=== PATIENT | male | born 2000 | race Caucasian/White ===

== ENCOUNTER 2019-11-13 21:34 | Inpatient (IN) | payer SELFPAY ==
[~2019-11-13] VITALS: Ht 165.1 cm; Wt 52.2 kg
[2019-11-13] MEDS ORDERED: ACETAMINOPHEN 325 MG TAB ONE (23:14)
[2019-11-13] MEDS ORDERED: SODIUM CHLORIDE 0.9% 1000ML 1,000 ML IV ONE (23:15)
[2019-11-13] MEDS ORDERED: PIPER-TAZ 3.375 GM 50 ML IV ONE (23:15)
[2019-11-13] MEDS ORDERED: MORPHINE SULFATE 2 MG/ML SYR 1ML IV STA (23:15)
[2019-11-13] MEDS ORDERED: ACETAMINOPHEN 325 MG TAB PO ONE (23:15)
[2019-11-13] MEDS ORDERED: ONDANSETRON HCL INJ 2MG/ML 2ML 2 MG/ML VIAL IV STA (23:15)
[2019-11-13] MEDS ORDERED: SODIUM CHLORIDE 0.9% 1000ML 1,000 ML ONE (23:17)
[2019-11-13 23:41] LABS: BASOPHILS % 0.2 % (0.0-1.0); HEMATOCRIT 47.9 % (38.2-49.6); HEMOGLOBIN 15.5 g/dL (14.0-18.0); LYMPHOCYTES # (AUTO) 0.6 (1.0-3.2); LYMPHOCYTES % 4.1 % (18.0-39.1); MEAN CORPUSCULAR HEMOGLOBIN 26.6 pg (28-32); MEAN CORPUSCULAR HGB CONC 32.4 g/dL (31-35); MEAN CORPUSCULAR VOLUME 82.2 fL (81-99); MONOCYTES # (AUTO) 1.1 (0.2-0.8); MONOCYTES % 7.5 % (4.4-11.3); NEUTROPHILS # (AUTO) 12.6 (2.1-6.9); NEUTROPHILS % 87.8 % (38.7-80.0); PLATELET COUNT 365 x10e3/uL (140-360); RED BLOOD COUNT 5.83 x10e6/uL (4.3-5.7); RED CELL DISTRIBUTION WIDTH 13.5 % (11.7-14.4)
[2019-11-13 23:47] LABS: ALANINE AMINOTRANSFERASE 10 IU/L (0-55); ALBUMIN 3.9 g/dL (3.5-5.0); ALBUMIN/GLOBULIN RATIO 1.1 (0.8-2.0); ALKALINE PHOSPHATASE 91 IU/L (40-150); ANION GAP 17.3 mmol/L (8-16); BLOOD UREA NITROGEN 14 mg/dL (7-26); BUN/CREATININE RATIO 14 (6-25); CALCIUM 9.5 mg/dL (8.4-10.2); CARBON DIOXIDE 24 mmol/L (22-29); CHLORIDE 99 mmol/L (98-107); CREATININE, SERUM 1.01 mg/dL (0.72-1.25); EST GLOMERULAR FILTRATION RATE > 60 ML/MIN (60-); GLUCOSE 108 mg/dL (74-118); POTASSIUM 4.3 mmol/L (3.5-5.1); SODIUM 136 mmol/L (136-145)
[2019-11-14] MEDS ORDERED: SODIUM CHLORIDE 0.9% 1000ML 1,000 ML IV ONE
[2019-11-14] MEDS ORDERED: SODIUM CHLORIDE 0.9% 50ML 50 ML ONE (00:43)
[2019-11-14] MEDS ORDERED: IOPAMIDOL 370 MG/ML 200 ML INFUS..BTL INJ ONE (00:43)
--- NOTE | 2019-11-14 01:32 | Emergency Department Note ---
History of Present Illnes History of Present Illness Chief Complaint: Abdominal Complaints History of Present Illness This is a 19 year old male WITH RIGHT ABD PAIN, N/V/D AND BURNING WITH URINATION TIMES ONE DAY . Historian: Patient Arrival Mode: Car Location: RIGHT ABD Quality: PAIN Radiation: Reports non-radiation Severity: moderate Onset quality: gradual Duration (how long): day(s) (1) Timing of current episode: constant Progression: worsening Context: Denies recent illness, Denies recent surgery, Denies trauma/injury Relieving factors: none Exacerbating factors: none Associated symptoms: Reports nausea/vomiting, Reports other (DIARRHEA, BURING WITH URINATION) Past Medical/Family History Physician Review I have reviewed the patient's past medical and family history. Any updates have been documented here. Past Medical History Recent Fever: No Clinical Suspicion of Infectio: No New/Unexplained Change in Ment: No Past Medical History: None Other Surgery: NASAL SX Social History Smoking Cessation: Never Smoker Alcohol Use: None Any Illegal Drug Use: No Physically hurt or threatened: No Other Any Pre-Existing Lines (PICC,: No Review of Systems Review of Systems Constitutional: Reports no symptoms EENTM: Reports no symptoms Cardiovascular: Reports no symptoms Respiratory: Reports no symptoms Gastrointestinal: Reports as per HPI Genitourinary: Reports as per HPI Musculoskeletal: Reports no symptoms Integumentary: Reports no symptoms Neurological: Reports no symptoms Psychological: Reports no symptoms Endocrine: Reports no symptoms Hematological/Lymphatic: Reports no symptoms Physical Exam Related Data Allergies: Coded Allergies: No Known Drug Allergies (Verified Allergy, Unknown, 11/14/19) Triage Vital Signs Vital Signs Date Time Temp Pulse Resp B/P (MAP) Pulse Ox O2 Delivery O2 Flow Rate FiO2 11/13/19 22:29 101.0 122 16 148/93 99 Room Air Vital signs reviewed: Yes Physical Exam CONSTITUTIONAL Constitutional: Present well-developed, Present well-nourished, Present distressed (MILD) HENT HENT: Present normocephalic, Present atraumatic, Present oropharynx clear/moist, Present nose normal HENT L/R: Present left ext ear normal, Present right ext ear normal EYES Eyes: Reports PERRL, Reports conjunctivae normal NECK Neck: Present ROM normal PULMONARY Pulmonary: Present effort normal, Present breath sounds normal CARDIOVASCULAR Cardiovascular: Present regular rhythm, Present heart sounds normal, Present capillary refill normal, Present tachycardia (110) GASTROINTESTINAL Abdominal: Present soft, Present tender (TO RUQ AND RLQ, RLQ WORSE), Present guarding (RLQ), Present rebound (RLQ), Present other (BOWEL SOUNDS DECREASED, ) GENITOURINARY Genitourinary: Present exam deferred SKIN Skin: Present warm, Present dry MUSCULOSKELETAL Musculoskeletal: Present ROM normal NEUROLOGICAL Neurological: Present alert, Present oriented x 3, Present no gross motor or sensory deficits PSYCHOLOGICAL Psychological: Present mood/affect normal, Present judgement normal Results Laboratory Result Diagram: 11/13/19230911/13/192309 Laboratory Laboratory Tests Test 11/14/19 00:56 11/13/19 23:18 11/13/19 23:10 Lactic Acid Level 3.4 mmol/L (0.5-2.0) White Blood Count 14.30 x10e3/uL (4.8-10.8) Red Blood Count 5.83 x10e6/uL (4.3-5.7) Hemoglobin 15.5 g/dL (14.0-18.0) Hematocrit 47.9 % (38.2-49.6) Mean Corpuscular Volume 82.2 fL (81-99) Mean Corpuscular Hemoglobin 26.6 pg (28-32) Mean Corpuscular Hemoglobin Concent 32.4 g/dL (31-35) Red Cell Distribution Width 13.5 % (11.7-14.4) Platelet Count 365 x10e3/uL (140-360) Neutrophils (%) (Auto) 87.8 % (38.7-80.0) Lymphocytes (%) (Auto) 4.1 % (18.0-39.1) Monocytes (%) (Auto) 7.5 % (4.4-11.3) Eosinophils (%) (Auto) 0.0 % (0.0-6.0) Basophils (%) (Auto) 0.2 % (0.0-1.0) Neutrophils # (Auto) 12.6 (2.1-6.9) Lymphocytes # (Auto) 0.6 (1.0-3.2) Monocytes # (Auto) 1.1 (0.2-0.8) Eosinophils # (Auto) 0.0 (0.0-0.4) Basophils # (Auto) 0.0 (0.0-0.1) Absolute Immature Granulocyte (auto 0.06 x10e3/uL (0-0.1) Sodium Level 136 mmol/L (136-145) Potassium Level 4.3 mmol/L (3.5-5.1) Chloride Level 99 mmol/L (98-107) Carbon Dioxide Level 24 mmol/L (22-29) Anion Gap 17.3 mmol/L (8-16) Blood Urea Nitrogen 14 mg/dL (7-26) Creatinine 1.01 mg/dL (0.72-1.25) Estimat Glomerular Filtration Rate > 60 ML/MIN (60-) BUN/Creatinine Ratio 14 (6-25) Glucose Level 108 mg/dL (74-118) Calcium Level 9.5 mg/dL (8.4-10.2) Total Bilirubin 1.8 mg/dL (0.2-1.2) Aspartate Amino Transf (AST/SGOT) 10 IU/L (5-34) Alanine Aminotransferase (ALT/SGPT) 10 IU/L (0-55) Alkaline Phosphatase 91 IU/L (40-150) Total Protein 7.6 g/dL (6.5-8.1) Albumin 3.9 g/dL (3.5-5.0) Globulin 3.7 g/dL (2.3-3.5) Albumin/Globulin Ratio 1.1 (0.8-2.0) Lab results reviewed: Yes Imaging Imaging results reviewed: Yes Impressions DR BERMEO (RADIOLOGIST) CALLED PT HAS MULTIPLE ABNORMALITIES BOWEL PERFORATION MULTIPLE STRICTURES INFLAMED APPENDIX INFLAMED ILEUM APPEARS TO HAVE SEVER CHRON'S BOWEL OBSTRUCTION Assessment & Plan Medical Decision Making MDM PT WITH RIGHT ABD PAIN WITH TENDERNESS TO ENTIRE RIGHT ABDOMEN BUT WORST AT RLQ, PT ALSO WITH GUARDING AND MILD REBOUND IN RLQ CBC,CMP, CT ABD/PELVIS, UA, LACTIC ACID, BLOOD CULTURES, ORDERED TO EVAL FOR SEPSIS, APPENDICITIS, UTI, PYELONEPHRITIS, KIDNEY STONE, GALLSTONES, ELEVATED LFT'S. MORPHINE 4 MG IV ORDERED ZOFRAN 4 MG IV ORDERED 2 LITERS NS IV BOLUS ORDERED ZOSYSN 3.375 GRAMS IV ORDERED SEPSIS START TIME [address] BONILLA AND DR COOK PT TO GO TO OR AT 7 AM Assessment & Plan Final Impression: (1) Severe sepsis (2) Perforated bowel (3) Bowel obstruction (4) Acute Crohn's disease (5) UTI (urinary tract infection) Depart Disposition: ADMITTED Last Vital Signs Date Time Temp Pulse Resp B/P (MAP) Pulse Ox O2 Delivery O2 Flow Rate FiO2 11/14/19 00:19 99.4 99 24 128/75 100 Room Air Medications in the ED Acetaminophen 975 mg STK-MED ONCE .ROUTE ; Start 11/13/19 at 23:14; Stop 11/13/19 at 23:09; Status DC Sodium Chloride 1,000 ml @ ud STK-MED ONCE .ROUTE ; Start 11/13/19 at 23:17; Stop 11/13/19 at 23:12; Status DC Piperacillin Sod/ Tazobactam Sod 50 ml @ 50 mls/hr NOW ONCE IV Last admini stered on 11/14/19at 00:05; Admin Dose 50 MLS/HR; Start 11/13/19 at 23:15; Stop 11/14/19 at 00:14 Acetaminophen 975 mg ONCE ONCE PO Last administered on 11/13/19at 23:15; Admin Dose 975 MG; Start 11/13/19 at 23:15; Stop 11/13/19 at 23:16 Sodium Chloride 1,000 ml @ 999 mls/hr Q1H1M ONCE IV Last administered on 11/14/19at 00:17; Admin Dose 999 MLS/HR; Start 11/13/19 at 23:15; Stop 11/14/19 at 00:15 Morphine Sulfate 2 mg NOW STAT IV Last administered on 11/14/19at 00:30; Admin Dose 2 MG; Start 11/13/19 at 23:15; Stop 11/13/19 at 23:16 Ondansetron HCl 4 mg NOW STAT IV Last administered on 11/14/19at 00:30; Admin Dose 4 MG; Start 11/13/19 at 23:15; Stop 11/13/19 at 23:16 Sodium Chloride 1,000 ml @ 999 mls/hr Q1H1M ONCE IV Last administered on 11/13/19at 23:15; Admin Dose 999 MLS/HR; Start 11/14/19 at 00:00; Stop 11/14/19 at 01:00 Sodium Chloride 50 ml @ ud STK-MED ONCE .ROUTE ; Start 11/14/19 at 00:43; Stop 11/14/19 at 00:37; Status DC Iopamidol 74,000 mg STK-MED ONCE INJ ; Start 11/14/19 at 00:43; Stop 11/14/19 at 00:37; Status DC PO CASTILLO MD Nov 14, 2019 01:32
[2019-11-14 01:37] LABS: CLARITY,URINE CLEAR (CLEAR); COLOR,URINE ORANGE (YELLOW)
[2019-11-14 01:38] LABS: BACTERIA,URINE MANY /HPF; BILIRUBIN,URINE SMALL (NEGATIVE); KETONES,URINE NEGATIVE (NEGATIVE); LEUKOCYTE ESTERASE ,URINE NEGATIVE (NEGATIVE); NITRITE,URINE POSITIVE (NEGATIVE); PROTEIN,URINE DIPSTICK 1+ (NEGATIVE); URINE UROBILINOGEN 0.2 mg/dL (0.2 - 1)
[2019-11-14 01:39] LABS: EPITHELIAL CELLS,URINE MODERATE /LPF; MUCUS,URINE MODERATE (RARE)
[2019-11-14] MEDS ORDERED: ACETAMINOPHEN 1000 MG/100 ML IV PRN (02:15)
[2019-11-14] MEDS ORDERED: BENZOCAINE/TETRACAINE/BUTAMBEN AERO SPRAY 56 GM CAN TOP ONE (02:15)
--- NOTE | 2019-11-14 02:15 | Diagnostic Imaging Report ---
EXAM: CT Abdomen and Pelvis WITH contrast INDICATION: ^RLQ PAIN, FEVER ^Y COMPARISON: None. TECHNIQUE: Abdomen and pelvis were scanned utilizing a multidetector helical scanner from the lung base to the pubic symphysis after administration of IV contrast. Coronal and sagittal reformations were obtained. Routine protocol was performed. Scan was performed when during portal venous phase. IV CONTRAST: 100 mL of Isovue 370 ORAL CONTRAST: None COMPLICATIONS: None RADIATION DOSE: Total DLP: 171.7 mGy*cm Estimated effective dose: (DLP x 0.015 x size factor) mSv CTDIvol has been reviewed. It is below the limits set by the Radiation Protocol Committee (RPC). Dose modulation, iterative reconstruction, and/or weight based adjustment of the mA/kV was utilized to reduce the radiation dose to as low as reasonably achievable. FINDINGS: LINES and TUBES: None. LOWER THORAX: Unremarkable HEPATOBILIARY: No focal hepatic lesions. No biliary ductal dilation. GALLBLADDER: No radio-opaque stones or sludge. No wall thickening. SPLEEN: No splenomegaly. PANCREAS: No focal masses or ductal dilatation. ADRENALS: No adrenal nodules KIDNEYS/URETERS: Kidneys enhance symmetrically. No hydronephrosis. No cystic or solid mass lesions. No stones. GI TRACT: Scattered foci of free intraperitoneal air. Small volume complex ascites. The terminal ileum is markedly thickened and hyperenhancing, concerning for high grade stricture. Multiple areas of hyperenhancing soft tissue tissue narrowing of small bowel loops that are suspected to represent additional inflammatory strictures as follows: * Left paramedian infraumbilical abdomen series #2 image 53. There is an 7 mm adjacent rim-enhancing hypodense lesion concerning for abscess. * Mid abdomen at the level of the KARON. series 2 image #41. * Left hemiabdomen at the level of the umbilicus. Series 2Image 48. There is dilatation of the distal ileum measuring up to 4.8 cm with thickened hyperenhancing glover that measure up to 5 mm. The appendix is in the right lower quadrant best seen on series #2 image 66. The appendix is dilated measuring up to 8 mm oval mildly dilated loops of bowel in the right hemiabdomen. Engorgement of the vasa recta. PELVIC ORGANS/BLADDER: Unremarkable. LYMPH NODES: No lymphadenopathy. VESSELS: Unremarkable. PERITONEUM / RETROPERITONEUM: There are multiple foci of free air. Small volume free fluid. BONES: Unremarkable. SOFT TISSUES: Unremarkable. IMPRESSION: * Findings concerning for viscus perforation with complex intraperitoneal fluid and air. * Uncertain source of perforation. Markedly dilated distal ileum (4.8 cm) with marked wall thickening (5 mm), and fecalization of contents. The distal ileum is located between upstream and downstream high-grade strictures and may be the source of perforation. * Thickened hyperenhancing terminal ileum and multiple thickened hyperenhancing segments of small bowel concerning for inflammatory strictures. Given skip lesions and engorgement of the vasa recta, inflammatory bowel disease - Crohns is suspected. * The appendix is dilated up to 8 mm in hyperenhancing, although this could be reactive to inflammatory changes, acute appendicitis is not excluded. * Possible subcentimeter intraperitoneal abscess as above. . Signed by: Scott Santos MD on 11/14/2019 2:11 AM
--- OUTSIDE RECORDS SUMMARY | 2019-11-14 02:27 | XMS REPORT | Continuity of Care Document ---
Author Author [facility] [place], [place] Organization [facility] [place], [place] Address [address] [place] [phone] Phone Unavailable Care Team Providers Care Genetics Nurse Name Role Phone Ciarra CASTILLO Attphys Unavailable Problems This patient has no known problems. Allergies, Adverse Reactions, Alerts This patient has no known allergies or adverse reactions. Medications This patient has no known medications. Procedures This patient has no known procedures. Results Test Description Test Time Test Comments Results Result Comments Source CT ABDOMEN/PELVIS W 2019-11-14 01:34:[address] [address] Patient Name: BRITNEY CRISOSTOMO MR #: [id number] : 2000 Age/Sex: 19/M Req #: [id number] Adm Physician: Ordered by: PO CASTILLO MD Report #: [id number] Location: ER Room/Bed: Procedure: [id number] CT/CT ABDOMEN/PELVIS W Exam Date: Exam Time: REPORT STATUS: Signed EXAM: CT Abdomen and Pelvis WITH contrast INDICATION: RLQ PAIN, FEVER Y COMPARISON: None. TECHNIQUE: Abdomen and pelvis were scanned utilizing a multidetector helical scanner from the lung base to the pubic symphysis after administration of IV contrast. Coronal and sagittal reformations were obtained. Routine protocol was performed. Scan was performed when during portal venous phase. IV CONTRAST: 100 mL of Isovue 370 ORAL CONTRAST: None COMPLICATIONS: None RADIATION DOSE: Total DLP: 171.7 mGy*cm Estimated effective dose: (DLP x 0.015 x size factor) mSv CTDIvol has been reviewed. It is below the limits set by the Radiation Protocol Committee (RPC). Dose modulation, iterative reconstruction, and/or weight based adjustment of the mA/kV was utilized to reduce the radiation dose to as low as reasonably achievable. FINDINGS: LINES and TUBES: None. LOWER THORAX: Unremarkable HEPATOBILIARY: No focal hepatic lesions. No biliary ductal dilation. GALLBLADDER: No radio-opaque stones or sludge. No wall thickening. SPLEEN: No splenomegaly. PANCREAS: No focal masses or ductal dilatation. ADRENALS: No adrenal nodules KIDNE YS/URETERS: Kidneys enhance symmetrically. No hydronephrosis. No cystic or solid mass lesions. No stones. GI TRACT: Scattered foci of free intraperitoneal air. Small volume complex ascites. The terminal ileum is markedly thickened and hyperenhancing, concerning for high grade stricture. Multiple areas of hyperenhancing soft tissue tissue narrowing of small bowel loops that are suspected to represent additional inflammatory strictures as follows: * Left paramedian infraumbilical abdomen series #2 image 53. There is an 7 mm adjacent rim-enhancing hypodense lesion concerning for abscess. * Mid abdomen at the level of the KARON. series 2 image #41. * Left hemiabdomen at the level of the umbilicus. Series 2Image 48. There is dilatation of the distal ileum measuring up to 4.8 cm with thickened hyperenhancing glover that measure up to 5 mm. The appendix is in the right lower quadrant best seen on series #2 image 66. The appendix is dilated measur ing up to 8 mm oval mildly dilated loops of bowel in the right hemiabdomen. Engorgement of the vasa recta. PELVIC ORGANS/BLADDER: Unremarkable. LYMPH NODES: No lymphadenopathy. VESSELS: Unremarkable. PERITONEUM / RETROPERITONEUM: There are multiple foci of free air. Small volume free fluid. BONES: Unremarkable. SOFT TISSUES: Unremarkable. IMPRESSION: * Findings concerning for viscus perforation with complex intraperitoneal fluid and air. * Uncertain source of perforation. Markedly dilated distal ileum (4.8 cm) with marked wall thickening (5 mm), and fecalization of contents. The distal ileum is located between upstream and downstream high-grade strictures and may be the source of perforation. * Thickened hyperenhancing terminal ileum and multiple thickened hyperenhancing segments of small bowel concerning for inflammatory strictures. Given skip lesions and engorgement of the vasa recta, inflammatory bowel disease - Crohns is suspected. * The appendix is dilated up to 8 mm in hyperenhancing, although this could be reactive to inflammatory changes, acute appendicitis is not excluded. * Possible subcentimeter intraperitoneal abscess as above. . Signed by: Chad Bermeo MD on 11/14/2019 2:11 AM Dictated By: CHAD BERMEO MD 0 Transcrib ed By: YESY on 11/14/19210 COPY TO: PO CASTILLO MD
[2019-11-14 04:00] VITALS: BP 126/81
--- NOTE | 2019-11-14 04:00 | NUR ---
Patient arrived to the floor from ED as a new admit with diagnoses of Acute Chron's Disease, Perforated Bowel, Bowel obstruction, Severe sepsis, and UTI. Pt alert and oriented x3. Ambulatory with standby assist prn. NG tube to right nare and to LIWS. Pt on IVF (NS at 125ml/hr). Pt on scheduled IV antibiotics. Pt on scheduled surgery (Exploratory Laparotomy) at 0700 (11/14/19). Pt has intermittent abd pain on RUQ and RLQ. Call frost within reach. Will monitor closely.
[2019-11-14] MEDS: SODIUM CHLORIDE 0.9% 1000ML 1,000 ML IV SCH ×4 (04:20→20:12)
--- NOTE | 2019-11-14 05:00 | NUR ---
Pt NPO and has signed consent for Exploratory Laparotomy. Pt has brownish to greenish mucousy fluid output to canister noted via NGT.
--- NOTE | 2019-11-14 05:40 | NUR ---
Patient had a bed hibiclens bath in preparation for today's surgery.
[2019-11-14 06:41] LABS: BASOPHILS % 0.3 % (0.0-1.0); EOSINOPHILS % 0.1 % (0.0-6.0); HEMATOCRIT 41.3 % (38.2-49.6); HEMOGLOBIN 13.3 g/dL (14.0-18.0); LYMPHOCYTES # (AUTO) 0.4 (1.0-3.2); LYMPHOCYTES % 4.1 % (18.0-39.1); MEAN CORPUSCULAR HEMOGLOBIN 26.9 pg (28-32); MEAN CORPUSCULAR HGB CONC 32.2 g/dL (31-35); MEAN CORPUSCULAR VOLUME 83.6 fL (81-99); MONOCYTES # (AUTO) 0.4 (0.2-0.8); MONOCYTES % 3.6 % (4.4-11.3); NEUTROPHILS % 91.5 % (38.7-80.0); PLATELET COUNT 297 x10e3/uL (140-360); RED BLOOD COUNT 4.94 x10e6/uL (4.3-5.7); RED CELL DISTRIBUTION WIDTH 13.5 % (11.7-14.4)
[2019-11-14 06:54] LABS: ALANINE AMINOTRANSFERASE 8 IU/L (0-55); ALBUMIN 3.1 g/dL (3.5-5.0); ALKALINE PHOSPHATASE 73 IU/L (40-150); ANION GAP 12.5 mmol/L (8-16); BLOOD UREA NITROGEN 12 mg/dL (7-26); BUN/CREATININE RATIO 14 (6-25); CALCIUM 8.6 mg/dL (8.4-10.2); CARBON DIOXIDE 26 mmol/L (22-29); CHLORIDE 104 mmol/L (98-107); CREATININE, SERUM 0.88 mg/dL (0.72-1.25); EST GLOMERULAR FILTRATION RATE > 60 ML/MIN (60-); GLUCOSE 98 mg/dL (74-118); POTASSIUM 4.5 mmol/L (3.5-5.1); SODIUM 138 mmol/L (136-145)
--- NOTE | 2019-11-14 07:00 | NUR ---
RECEIVED PATIENT RESTING IN BED NO S/S OF DISTRESS. NGT TO LIWS. BED LOW, WHEELS LOCKED, SIDE RAILS X2. CALL LIGHT IN REACH WILL CONTINUE TO MONITOR PATIENT. PATIENT NPO AT THIS TIME FOR PROCEDURE THIS MORNING.
--- NOTE | 2019-11-14 07:17 | NUR ---
PATIENT TAKEN TO OR VIA BED BY OR TEAM IN STABLE CONDITION.
--- NOTE | 2019-11-14 08:32 | Consultation ---
DATE OF CONSULTATION: 11/14/2019 CHIEF COMPLAINT: Abdominal pain. HISTORY OF PRESENT ILLNESS: A 19-year-old male with 1-day history of pain, which was diffuse and associated with nausea. No vomiting or diarrhea. The patient has had mildly decrease of pain in the past. PAST MEDICAL HISTORY: Negative for chronic illness. PAST SURGICAL HISTORY: Positive for nasal surgery. ALLERGIES: NO DRUGS ALLERGY. SOCIAL HABITS: He does not smoke or drink. REVIEW OF SYSTEMS: No chest pain, shortness of breath, cough, or fevers. PHYSICAL EXAMINATION: VITAL SIGNS: The patient's vital signs are stable. T-max is 101. GENERAL: The patient is awake, alert, in moderate discomfort. HEENT: Sclerae nonicteric. NECK: Supple. LUNGS: Clear. HEART: Regular rate and rhythm. ABDOMEN: Mildly distended with diffuse guarding, tenderness, and mild rebound in the right lower quadrant. EXTREMITIES: No cyanosis or edema. LABORATORY DATA: White cell count is 14, hemoglobin of 13, and platelet count 297. Creatinine is 1.0. CT scan show multiple dilated loops of bowel with thickened ileum, concerning for Crohn's disease. Mildly dilated appendix. ASSESSMENT: Perforated viscus with pneumoperitoneum, possible perforated Crohn's disease. PLAN: Exploratory laparotomy, possible bowel resection. Attendant risks were discussed. Jose Whitehead MD DNL/MODL /[id number]
[2019-11-14] MEDS ORDERED: NEOSTIGMINE 1 MG/ML 10ML VIAL ONE ×2 (09:21→14:44)
--- NOTE | 2019-11-14 09:30 | NUR ---
H&P cc: abdominal pain HPI: 19yoM, PCP , developed abdominal pain about 2 days ago, with N/V/D. Found to have perforated viscus, taken to surgery this am, underwent right hemicolectomy. PMH: none PShx: nasal polypectomy Allergies; see emr Fh/SH; single; no cigs meds; see MAR ROS: no f/c/s/ORTEGA/vision changes/cp/sob/confusion/focal limb weakness v/s revd PE tired appearing; NGT IN PLACE anicteric ns1s2 mod bs soft ND; DRESSING IN MIDLINE OF ABDOMEN; APPROPRIATE TENDERNESS no e/t; SCD skin dry flat affect a&ox3; mejía labs/meds revd A/P: Perforated viscus- IV abx; NPO; Sx consult; s/p right hemicolectomy Crohn's ileitis- with perforation; s/p surgical resection Sepsis- IV abx; IVF UTI- IV abx Prop: scd; dipso: Desmond Chavez MD, PhD.
--- NOTE | 2019-11-14 09:52 | Operative Report ---
DATE OF PROCEDURE: 11/14/2019 SURGEON: Jose Whitehead MD PREOPERATIVE DIAGNOSIS: Perforated viscus. POSTOPERATIVE DIAGNOSIS: Perforated Crohn ileitis. OPERATIVE PROCEDURE: Right colectomy. ANESTHESIA: General endotracheal; Dr. Grijalva. INDICATION FOR SURGERY: This patient is a 19-year-old male with abdominal pain diffusely for several days with CT scan showing evidence of free air and ileitis. The patient consented for exploratory laparotomy and possible bowel resection. PROCEDURE FINDING: Ileitis with perforation in the terminal ileum with diffuse peritonitis. DESCRIPTION OF PROCEDURE: The patient was brought to the OR intubated. The abdomen was prepped with alcohol and draped in sterile fashion. A midline incision was made through the fascia entering the peritoneal cavity. Cloudy peritoneal fluid was encountered, which is bile tinged from perforated ileum. Washout was carried out to remove all contaminating fluid. We proceeded to mobilize the right colon to the hepatic flexure, taking down the white line of Toldt. Also the ileum was prepared for its removal and the dilated thickened ileal segment of intestine measuring approximately 40 cm from the ileocecal valve with thickened mesentery was selected for resection, which was carried out with a NICHOLAS stapler. The right colon was divided at the mid ascending colon with the same stapler. The mesentery to the segment of bowel resected is controlled with the LigaSure instrument. Hemostasis achieved. Specimen removed from the operative field. The anastomosis between the ileum to the ascending colon was carried out with NICHOLAS stapler and [id number] instrument. Mesentery defect was closed with interrupted 3-0 silk. Operative field was irrigated with copious saline solution, approximately 5 L was used to washout all contaminating fluid. Hemostasis achieved. We then proceeded to close the abdomen with a running #1 PDS. Skin was closed with staple with a Tonya in the subcutaneous tissue. The patient was then extubated and transported to recovery room in guarded condition. Blood loss was approximately 30 mL. Jose Whitehead MD DNL/MODL /[id number]
--- NOTE | 2019-11-14 10:43 | NUR ---
PATIENT BACK FROM OR. VITAL SIGNS STABLE. DRESSING TO ABDOMEN C/D/I. SCD'S BILATERALLY. IV FLUIDS INFUSING. NGT TO LIWS. PATIENT DENIES PAIN AT THIS TIME. CALL LIGHT IN REACH WILL CONTINUE TO MONITOR.
[2019-11-14] MEDS: PIPER-TAZ 3.375 GM / NS 50ML IV SCH ×2 (11:17→16:00)
[2019-11-14 11:23] VITALS: BP 108/94
[2019-11-14 11:24] VITALS: BP 108/94
[2019-11-14 12:02] LABS: BAND NEUTROPHILS % (MANUAL) 9 %; LYMPHOCYTES % (MANUAL) 2 % (19-48); MONOCYTES % (MANUAL) 2 % (3.4-9.0); NEUTROPHILS % (MANUAL) 86 % (40-74); PLATELET ESTIMATE ADEQUATE; PLATELET MORPHOLOGY COMMENT NORMAL; RBC MORPHOLOGY COMMENT NORMAL
[2019-11-14] MEDS ORDERED: FENTANYL CITRATE/PF 100MCG/2 ML INJ ONE (14:37)
[2019-11-14] MEDS ORDERED: MORPHINE SULFATE INJ 10 MG/ML ONE (14:37)
[2019-11-14] MEDS ORDERED: MIDAZOLAM HCL 2 MG/2 ML VIAL ONE (14:37)
[2019-11-14] MEDS ORDERED: ONDANSETRON HCL INJ 2MG/ML 2ML 2 MG/ML VIAL ONE (14:44)
[2019-11-14] MEDS ORDERED: GLYCOPYRROLATE INJ 0.2 MG/ML VIAL ONE (14:44)
[2019-11-14] MEDS ORDERED: ROCURONIUM BROMIDE 10 MG/ML 5ML VIAL IV ONE (14:44)
[2019-11-14] MEDS ORDERED: PROPOFOL IV EMULSION 10 MG/ML 20 ML VIAL ONE (14:44)
[2019-11-14] MEDS ORDERED: DESFLURANE 240 ML BTL INH ONE (14:44)
[2019-11-14] MEDS ORDERED: LIDOCAINE HCL 2% LOCAL INJ 5 ML SDV VIAL INJ ONE (14:44)
[2019-11-14] MEDS ORDERED: SUCCINYLCHOLINE CHLORIDE 20 MG/ML 10ML VIAL ONE (14:44)
[2019-11-14] MEDS ORDERED: DEXAMETHASONE SOD PHOS INJ 4 MG/ML VIAL ONE (14:44)
[2019-11-14 16:33] VITALS: BP 120/66
--- NOTE | 2019-11-14 18:26 | NUR ---
PATIENT HAS VOIDED SINCE SURGERY.
[2019-11-14] MEDS ORDERED: LORAZEPAM INJ 2 MG/ML VIAL IV PRN (19:00)
--- NOTE | 2019-11-14 19:00 | NUR ---
Patient visited in room during nursing rounds. Pt alert and oriented x3. Ambulatory with standby assist prn. NG tube to right nare and to LIWS draining dark green fluid. Pt on IVF (NS at 150ml/hr). Pt on scheduled IV antibiotics. S/P surgery (Exploratory Laparotomy) done today with vertical mid abdomen dressing (C/D/I). Pt is NPO except sips of water and ice chips. SCDs in place to BLE. Pt stated pain very little (1/10) on surgical site. Call frost within reach. Will monitor closely.
[2019-11-14 20:00] VITALS: BP 131/83
[2019-11-14 20:58] VITALS: BP 131/83
[2019-11-14] MEDS: MORPHINE SULFATE 2 MG/ML SYR 1ML IV PRN (22:18)
[2019-11-15] VITALS (8 sets, daily range): BP systolic 133–154; BP diastolic 77–87
[2019-11-15] MEDS: PIPER-TAZ 3.375 GM / NS 50ML IV SCH ×4 (00:29→23:48)
[2019-11-15] MEDS: SODIUM CHLORIDE 0.9% 1000ML 1,000 ML IV SCH ×3 (04:15→20:07)
[2019-11-15] MEDS: MORPHINE SULFATE 2 MG/ML SYR 1ML IV PRN ×3 (06:01→23:49)
[2019-11-15 06:23] LABS: BASOPHILS % 0.2 % (0.0-1.0); EOSINOPHILS % 0.3 % (0.0-6.0); HEMATOCRIT 34.1 % (38.2-49.6); HEMOGLOBIN 11.5 g/dL (14.0-18.0); LYMPHOCYTES # (AUTO) 0.3 (1.0-3.2); LYMPHOCYTES % 3.2 % (18.0-39.1); MEAN CORPUSCULAR HEMOGLOBIN 29.6 pg (28-32); MEAN CORPUSCULAR HGB CONC 33.7 g/dL (31-35); MEAN CORPUSCULAR VOLUME 87.7 fL (81-99); MONOCYTES # (AUTO) 0.5 (0.2-0.8); MONOCYTES % 5.5 % (4.4-11.3); NEUTROPHILS # (AUTO) 8.5 (2.1-6.9); NEUTROPHILS % 90.4 % (38.7-80.0); PLATELET COUNT 203 x10e3/uL (140-360); RED BLOOD COUNT 3.89 x10e6/uL (4.3-5.7)
[2019-11-15 06:32] LABS: ALANINE AMINOTRANSFERASE 7 IU/L (0-55); ALBUMIN 2.5 g/dL (3.5-5.0); ALBUMIN/GLOBULIN RATIO 0.8 (0.8-2.0); ALKALINE PHOSPHATASE 64 IU/L (40-150); ANION GAP 9.4 mmol/L (8-16); BLOOD UREA NITROGEN 11 mg/dL (7-26); BUN/CREATININE RATIO 13 (6-25); CALCIUM 8.8 mg/dL (8.4-10.2); CARBON DIOXIDE 27 mmol/L (22-29); CHLORIDE 101 mmol/L (98-107); CREATININE, SERUM 0.84 mg/dL (0.72-1.25); EST GLOMERULAR FILTRATION RATE > 60 ML/MIN (60-); GLUCOSE 89 mg/dL (74-118); POTASSIUM 4.4 mmol/L (3.5-5.1); SODIUM 133 mmol/L (136-145)
--- NOTE | 2019-11-15 07:00 | NUR ---
received bedside report. pt is alert resting in bed, no s/s of distress. r NGT in place connected to LIWS. pt has no complaints at this time. call light within reach
--- NOTE | 2019-11-15 07:10 | NUR ---
IM- progress note O/N see below ROS: no f/c/s/ORTEGA/vision changes/cp/sob/confusion/focal limb weakness v/s revd PE tired appearing; NGT IN PLACE anicteric ns1s2 mod bs soft ND; DRESSING IN MIDLINE OF ABDOMEN; APPROPRIATE TENDERNESS no e/t; SCD skin dry flat affect a&ox3; mejía labs/meds revd A/P: Perforated viscus- IV abx; NPO; Sx consult; s/p right hemicolectomy Crohn's ileitis- with perforation; s/p surgical resection Sepsis- IV abx; IVF UTI- IV abx Prop: scd; dipso: 8-10 cont care; labs revd; improving; cont care; ambulate; remains with NGT Desmond Chavez MD, PhD.
[2019-11-15 12:11] LABS: ANISOCYTOSIS SLIGHT; LYMPHOCYTES % (MANUAL) 4 % (19-48); MONOCYTES % (MANUAL) 5 % (3.4-9.0); NEUTROPHILS % (MANUAL) 91 % (40-74); PLATELET ESTIMATE ADEQUATE; PLATELET MORPHOLOGY COMMENT NORMAL; RBC MORPHOLOGY COMMENT NORMAL
--- NOTE | 2019-11-15 13:12 | NUR ---
pt is resting comfortably, iv fluid bag changed, no complaints at this time. call light within reach
--- NOTE | 2019-11-15 14:15 | NUR ---
helped patient ambulate from bed to bathroom and back to bed. re-connected to LIWS, iv fluids and SCD. gave patient morphine and zofran per orders. patient is resting comfortably in bed, speaking with family on the phone.
[2019-11-15] MEDS: ONDANSETRON HCL INJ 2MG/ML 2ML 2 MG/ML VIAL IV PRN ×2 (14:16→23:49)
--- NOTE | 2019-11-15 17:17 | NUR ---
Nutrition Screen Note RD Recommendation for Physician: -Recommend advancing to GI soft diet when medically appropriate Plan of Care: RD following, monitoring for tolerance and adequacy Nutrition reason for involvement: Nutrition Risk Trigger Primary Diagnose(s): acute Crohns disease, bowel obstruction, perforated bowel, severe sepsis, and UTI PMH: Negative for chronic illness Ht: 65 in Wt:116.56 lb BMI: 19.4 kg/m2 IBW:[address] Assessment: (11/15/19) Chart reviewed. Labs and meds reviewed. Pt is a 19 year old male admitted with acute Crohns disease, bowel obstruction, perforated bowel, and severe sepsis. Pt had an exploratory laparotomy with right mini hemicolectomy yesterday. COVID-19 results are pending. Attempted to call pt over the phone, but he did not answer. Pt is currently NPO with NGT connected to [employer]. Per chart, pt had reported unsure weight loss and a decreased appetite prior to admission. Will continue to monitor. Current Diet: NPO Malnutrition Evaluation (11/15/19) Unable to fully assess at this time. Will re-evaluate at follow-up as appropriate. Diet Education Needs Assessment: Diet education not indicated, pt is on a temporary/transition diet Nutrition Care Level: low Signed: Silvia Xavier, RD, LD
[2019-11-16] VITALS (10 sets, daily range): BP systolic 136–148; BP diastolic 80–95
[2019-11-16] MEDS: SODIUM CHLORIDE 0.9% 1000ML 1,000 ML IV SCH ×4 (04:00→23:00)
--- NOTE | 2019-11-16 06:28 | NUR ---
Pt has a temperature of 100.8. Dr. Whitehead notified. No new orders at this time. Will continue to monitor pt.
--- NOTE | 2019-11-16 06:36 | NUR ---
IM- progress note O/N see below ROS: no f/c/s/ORTEGA/vision changes/cp/sob/confusion/focal limb weakness v/s revd PE tired appearing; NGT IN PLACE anicteric ns1s2 mod bs soft ND; DRESSING IN MIDLINE OF ABDOMEN; APPROPRIATE TENDERNESS no e/t; SCD skin dry flat affect a&ox3; mejía labs/meds revd A/P: Perforated viscus- IV abx; NPO; Sx consult; s/p right hemicolectomy Crohn's ileitis- with perforation; s/p surgical resection Sepsis- IV abx; IVF UTI- IV abx Prop: scd; dipso: 8-10 cont care; labs revd; improving; cont care; ambulate; remains with NGT 8-11 progressing; cont care; Desmond Chavez MD, PhD.
[2019-11-16] MEDS: MORPHINE SULFATE 2 MG/ML SYR 1ML IV PRN ×2 (07:25→23:45)
[2019-11-16] MEDS: PIPER-TAZ 3.375 GM / NS 50ML IV SCH ×3 (07:25→23:41)
[2019-11-16] MEDS: ONDANSETRON HCL INJ 2MG/ML 2ML 2 MG/ML VIAL IV PRN ×2 (07:25→23:45)
--- NOTE | 2019-11-16 18:22 | NUR ---
pt walked down hallway to nurses station and back to room with walker for support and RN at standby assist.
[2019-11-17] VITALS (10 sets, daily range): BP systolic 136–146; BP diastolic 81–97
[2019-11-17] MEDS: SODIUM CHLORIDE 0.9% 1000ML 1,000 ML IV SCH ×3 (04:47→22:00)
[2019-11-17] MEDS: PIPER-TAZ 3.375 GM / NS 50ML IV SCH ×2 (09:03→16:30)
[2019-11-17] MEDS: ONDANSETRON HCL INJ 2MG/ML 2ML 2 MG/ML VIAL IV PRN (09:10)
--- NOTE | 2019-11-17 10:52 | NUR ---
PASSING GAS, LITTLE NAUSEA, NO VOMITING OR BM
--- NOTE | 2019-11-17 14:53 | NUR ---
IM- progress note O/N see below ROS: no f/c/s/ORTEGA/vision changes/cp/sob/confusion/focal limb weakness v/s revd PE tired appearing; NGT IN PLACE anicteric ns1s2 mod bs soft ND; DRESSING IN MIDLINE OF ABDOMEN; APPROPRIATE TENDERNESS no e/t; SCD skin dry flat affect a&ox3; mejía labs/meds revd A/P: Perforated viscus- IV abx; NPO; Sx consult; s/p right hemicolectomy Crohn's ileitis- with perforation; s/p surgical resection Sepsis- IV abx; IVF UTI- IV abx Prop: scd; dipso: 8-10 cont care; labs revd; improving; cont care; ambulate; remains with NGT 8- progressing; cont care; 8-12 improving; no BM yet; had flatus; NGT per surgery. cont care; ambulate; currently on ice chips. Desmond Chavez MD, PhD.
[2019-11-17] MEDS: MORPHINE SULFATE 2 MG/ML SYR 1ML IV PRN (18:36)
--- NOTE | 2019-11-17 19:00 | NUR ---
Patient visited in room during nursing rounds. Patient alert and oriented x3. Ambulatory in room with standby assist prn. On clear liquid diet. Vertical dressing on mid abdomen (C/D/I). Awaiting on Dr. Whitehead either tonight or tomorrow morning to remove alvin drain. Pt denies any discomfort or pain at this time. On IVF (NS at 100ml/hr). Call frost within reach. Will monitor pt closely.
--- NOTE | 2019-11-17 22:00 | NUR ---
Paged Dr. Whitehead to possibly ask if he will come tonight to remove alvin drain but no answer. Pt aware and agreed to wait for Dr. Whitehead tomorrow to remove alvin drain. Pt in stable condition.
--- NOTE | 2019-11-17 23:33 | NUR ---
Spoke with Dr. Whitehead over phone and was informed that he will just come tomorrow morning (11/18/19) to take the alvin out.
[2019-11-18] VITALS (11 sets, daily range): BP systolic 127–138; BP diastolic 80–87
[2019-11-18] MEDS: PIPER-TAZ 3.375 GM / NS 50ML IV SCH ×4 (00:18→23:59)
--- NOTE | 2019-11-18 06:45 | NUR ---
IM- progress note O/N see below ROS: no f/c/s/ORTEGA/vision changes/cp/sob/confusion/focal limb weakness v/s revd PE tired appearing; anicteric ns1s2 mod bs soft ND; DRESSING IN MIDLINE OF ABDOMEN; APPROPRIATE TENDERNESS no e/t; SCD skin dry flat affect a&ox3; mejía labs/meds revd A/P: Perforated viscus- IV abx; NPO; Sx consult; s/p right hemicolectomy Crohn's ileitis- with perforation; s/p surgical resection Sepsis- IV abx; IVF UTI- IV abx Prop: scd; dipso: 8-10 cont care; labs revd; improving; cont care; ambulate; remains with NGT 8 progressing; cont care; 11-16 improving; no BM yet; had flatus; NGT per surgery. cont care; ambulate; currently on ice chips. 8 check labs; doing better; NGT is out; ambulate; add bowel reg. Desmond Chavez MD, PhD.
[2019-11-18] MEDS: SODIUM CHLORIDE 0.9% 1000ML 1,000 ML IV SCH ×3 (08:44→20:25)
[2019-11-18 08:56] LABS: BASOPHILS % 0.5 % (0.0-1.0); EOSINOPHILS # (AUTO) 0.6 (0.0-0.4); EOSINOPHILS % 9.8 % (0.0-6.0); LYMPHOCYTES # (AUTO) 0.4 (1.0-3.2); LYMPHOCYTES % 5.6 % (18.0-39.1); MEAN CORPUSCULAR HEMOGLOBIN 26.7 pg (28-32); MEAN CORPUSCULAR HGB CONC 32.4 g/dL (31-35); MEAN CORPUSCULAR VOLUME 82.5 fL (81-99); MONOCYTES # (AUTO) 0.8 (0.2-0.8); MONOCYTES % 12.2 % (4.4-11.3); NEUTROPHILS # (AUTO) 4.4 (2.1-6.9); PLATELET COUNT 264 x10e3/uL (140-360); RED BLOOD COUNT 4.12 x10e6/uL (4.3-5.7); RED CELL DISTRIBUTION WIDTH 13.2 % (11.7-14.4)
[2019-11-18 09:11] LABS: ANION GAP 14.5 mmol/L (8-16); BLOOD UREA NITROGEN 7 mg/dL (7-26); BUN/CREATININE RATIO 10 (6-25); CALCIUM 8.6 mg/dL (8.4-10.2); CARBON DIOXIDE 24 mmol/L (22-29); CHLORIDE 103 mmol/L (98-107); CREATININE, SERUM 0.71 mg/dL (0.72-1.25); EST GLOMERULAR FILTRATION RATE > 60 ML/MIN (60-); GLUCOSE 93 mg/dL (74-118); POTASSIUM 3.5 mmol/L (3.5-5.1); SODIUM 138 mmol/L (136-145)
[2019-11-18 09:42] LABS: MAGNESIUM 1.8 MG/DL (1.3-2.1); PHOSPHORUS 3.5 MG/DL (2.3-4.7)
--- NOTE | 2019-11-18 18:36 | NUR ---
Pt states he has had some loose bms and doesn't require a laxative. C/O some pain to the right ac iv site, so it was discontinued and a new iv started to left forearm 1 stick patient tolerated it well 22g
--- NOTE | 2019-11-18 19:10 | NUR ---
Patient visited in room during nursing rounds. Patient alert and oriented x3. Ambulatory in room with standby assist prn. On clear liquid diet. Vertical dressing on mid abdomen (C/D/I). Pt denies any discomfort or pain at this time. On IVF (NS at 100ml/hr). Call frost within reach. Will monitor pt closely.
[2019-11-18] MEDS: SENNOSIDES 8.6 MG TAB PO SCH (20:29)
[2019-11-19] VITALS: BP 140/85
[2019-11-19] MEDS: MORPHINE SULFATE 2 MG/ML SYR 1ML IV PRN (00:45)
[2019-11-19 04:00] VITALS: BP 138/84
[2019-11-19] MEDS: SODIUM CHLORIDE 0.9% 1000ML 1,000 ML IV SCH (05:49)
--- NOTE | 2019-11-19 06:39 | NUR ---
IM- progress note O/N see below ROS: no f/c/s/ORTEGA/vision changes/cp/sob/confusion/focal limb weakness v/s revd PE tired appearing; anicteric ns1s2 mod bs soft ND; DRESSING IN MIDLINE OF ABDOMEN; APPROPRIATE TENDERNESS no e/t; SCD skin dry flat affect a&ox3; mejía labs/meds revd A/P: Perforated viscus- IV abx; NPO; Sx consult; s/p right hemicolectomy Crohn's ileitis- with perforation; s/p surgical resection Sepsis- IV abx; IVF UTI- IV abx Prop: scd; dipso: 8-10 cont care; labs revd; improving; cont care; ambulate; remains with NGT 8- progressing; cont care; 8-12 improving; no BM yet; had flatus; NGT per surgery. cont care; ambulate; currently on ice chips. 8-13 check labs; doing better; NGT is out; ambulate; add bowel reg. 8-14 improving; d/c planning; diet being advanced; I placed scripts in chart; when cleared by surgery, pt can go home and f/u pcp 2-3 days. Desmond Chavez MD, PhD.
[2019-11-19] MEDS ORDERED: SENOKOT8.6 MG PO (06:42)
[2019-11-19] MEDS ORDERED: ZOFRAN4 MG PO (06:42)
[2019-11-19] MEDS ORDERED: ULTRAM 50MG50 MG PO (06:42)
--- NOTE | 2019-11-19 07:00 | NUR ---
BEDSIDE SHIFT REPORT RECEIVED FROM THE RV REPAIRER RN. EDUCATED PT ABOUT FALL PRECAUTIONS. PT VERBALIZED UNDERSTANDING. CALL LIGHT WITH IN EASY REACH. BED IS LOW AND LOCKED. SIDE RAILS X2. ALL SAFETY MEASURES IN PLACE. PT DENIES NEEDS AT THIS TIME.
[2019-11-19 08:00] VITALS: BP 128/81
[2019-11-19 08:51] VITALS: BP 128/81
[2019-11-19] MEDS: SENNOSIDES 8.6 MG TAB PO SCH (09:00)
[2019-11-19] MEDS: PIPER-TAZ 3.375 GM / NS 50ML IV SCH ×2 (09:00→17:00)
[2019-11-19 12:00] VITALS: BP 135/77
[2019-11-19 16:00] VITALS: BP 135/76
--- NOTE | 2019-11-19 17:00 | NUR ---
PT TOLERATED GI SOFT DIET WELL. PT DENIES ANY PAIN OR DISCOMFORT.
--- NOTE | 2019-11-19 17:20 | NUR ---
JOSHUA TO D/C PT PER DR. COOK AND DR. BONILLA.
--- NOTE | 2019-11-19 18:54 | NUR ---
PT DISCHARGED HOME SAFELY WITH FAMILY MEMBER. PT ESCORTED VIA WHEEL CHAIR TO THE PRIVATE AUTO AT THE FRONT ENTRANCE. TELE AND IV REMOVED. TIP INTACT. DRESSING APPLIED. RX GIVEN. DISCHARGE INSTRUCTIONS GIVEN AND PT VERBALIZED UNDERSTANDING. PT DENIED FURTHER NEEDS.
== END 2019-11-19 18:54 | disposition home or self-care (01) | DRG 853 ==
LOC: ER 23:17 → ERHOLD 11-14 02:23 → MED/SURG3 11-14 03:55
PROVIDERS: ADMIT Internal Medicine; ATTEND Internal Medicine
PROC: 0DTF0ZZ Resection of Right Large Intestine, Open Approach (ICD-10-PCS; principal; 2019-11-14 07:48)
DX: A41.9 Sepsis, unspecified organism (principal); K63.1 Perforation of intestine (nontraumatic); K65.0 Generalized (acute) peritonitis; K50.818 Crohn's disease of both small and large intestine with other complication; N39.0 Urinary tract infection, site not specified; K52.0 Gastroenteritis and colitis due to radiation; Z68.1 Body mass index [BMI] 19.9 or less, adult; R65.20 Severe sepsis without septic shock; K66.8 Other specified disorders of peritoneum; R63.6 Underweight
CPT/HCPCS: 36415; 74177; 80048; 80053; 81001; 82948; 83605; 83735; 84100; 85025; 87040; 88307; 99284; J0330; J1100; J2001; J2250; J2270; J2405; J2543; J2710; J3010; J7030; Q9967; U0002